=== PATIENT | male | born 1930 | race African-American/Black ===

== ENCOUNTER 2016-05-31 00:43 | Emergency (ER) | payer MEDICARE, MEDICAID ==
[~2016-05-31] VITALS: Ht 185.4 cm; Wt 104.3 kg
[~2016-05-31 00:43] MED LIST: ACETAMINOPHEN80 MG ORAL; ALPHAGAN P5 M2 OP; ALPHAGAN1 DROP BOTH EYES; APRESOLINE100 MG ORAL; APRESOLINE50 MG ORAL; ASPIRIN81 MG NG; ASPIRIN81 MG ORAL; ATORVASTATIN CA20 MG ORAL; AZOPT10 ML BOTH EYES; BRIMONIDINE TART5 ML BOTH EYES; BYSTOLIC 2.5MG2.5 MG ORAL; BYSTOLIC10 MG ORAL; BYSTOLIC20 MG ORAL; CLONIDINE0.1 MG PO; EXFORGE 10-3201 EACH ORAL; EXFORGE 5-1601 EACH ORAL; FUROSEMIDE40 MG ORAL; FUROSEMIDE40 MG/5 ML ORAL; IMDUR30 MG ORAL; ISOSORBIDE DINIT5 MG ORAL; LATANOPROST2.5 ML BOTH EYES; LEVETIRACETAM500 M1 ORAL; LIPITOR20 MG ORAL; LIPITOR80 MG ORAL; LORAZEPAM2 MG/1 M4 ORAL; LOSARTAN POTAS100 MG ORAL; NKM; NORVASC5 MG ORAL; NOVOLIN 70/305 UNIT1 SUBQ; NOVOLOG100 UNITS1 SUBQ; PANTOPRAZOLE SO40 MG IVP; PLAVIX75 MG ORAL; POTASSIUM CHLO20 ME2 ORAL; VANCOMYCIN HCL125 MG IVP; VASOTEC10 MG ORAL; VASOTEC20 MG ORAL; VITAMIN D1000 UNI1 ORAL; XALATAN2.5 ML BOTH EYES
[2016-05-31] MEDS ORDERED: CYMBALTA60 MG ORAL (00:56)
[2016-05-31 01:00] VITALS: BP 64/28
[2016-05-31] MEDS ORDERED: NS 1000ml 3,100 ML IVLG ONE (01:15)
[2016-05-31 01:24] VITALS: BP 64/28
[2016-05-31 01:24] LABS: MEAN CORPUSCULAR HEMOGLOBIN 31.5 PG (27.0-31.0); MEAN CORPUSCULAR HGB CONC 29.8 G/DL (32.0-36.0); MEAN CORPUSCULAR VOLUME 106 FL (80-99); PLATELET COUNT 238 K/UL (150-450); RED BLOOD COUNT 3.16 M/UL (4.70-6.10); RED CELL DISTRIBUTION WIDTH 17.2 % (11.6-14.8); WHITE BLOOD COUNT 19.6 K/UL (4.8-10.8)
[2016-05-31 01:33] LABS: INR 1.5 (0.9-1.1); PROTHROMBIN TIME 15.9 SEC (9.30-11.50)
[2016-05-31 01:37] LABS: TROPONIN I < 0.30 ng/mL (<=0.30)
[2016-05-31 01:41] LABS: ALANINE AMINOTRANSFERASE 21 U/L (3-41); ALBUMIN/GLOBULIN RATIO 0.4 (1.0-2.7); ASPARTATE AMINO TRANSFERASE 47 U/L (5-40); CHLORIDE 138 mEQ/L (98-107); HEMOLYSIS 20; TOTAL PROTEIN 6.6 g/dL (6.6-8.7)
[2016-05-31] MEDS ORDERED: Piperacillin/Tazobactam 4.5 GM in NS 110 ML IVPB ONE (01:45)
[2016-05-31 01:47] LABS: CARBON DIOXIDE 9 mEQ/L (20-30); REFLEX LACTIC ACID YES OR NO YES
[2016-05-31] MEDS ORDERED: Zosyn 4.5gm inj ONE (01:49)
[2016-05-31 01:50] LABS: ANION GAP 33 (5-15); SODIUM 180 mEQ/L (135-145)
[2016-05-31 01:51] LABS: CKMB 4.5 ng/mL (< 6.7)
[2016-05-31 02:30] VITALS: BP 35/18
--- NOTE | 2016-05-31 02:30 | Emergency Room Report ---
History of Present Illness General Chief Complaint: Altered Level of Consciousness Source: Medical Record, EMS Present Illness HPI This is an 85-year-old male who is a [facility] resident. 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 He had a recent history of intracranial bleed. He was sent in for altered mental status with low blood pressure. Unable to get any history from the patient. History is through EMS and chart. Allergies: Coded Allergies: No Known Allergies (Unverified , 05/31/16) Patient History Past Medical History: see triage record, old chart reviewed, CVA/TIA Past Surgical History: other Pertinent Family History: none Social History: Denies: smoking Immunizations: other Reviewed Nursing Documentation: PMH: Agreed, PSxH: Agreed Nursing Documentation-PMH Past Medical History: No History, Except For Hx Cardiac Problems: Yes - afib Hx Hypertension: Yes Hx COPD: Yes Hx Diabetes: Yes Hx Cancer: No Hx Gastrointestinal Problems: No Hx Neurological Problems: Yes Hx Cerebrovascular Accident: Yes Hx Transient Ischemic Attacks: Yes Hx Seizures: Yes - epilepsy Review of Systems Constitutional: Reports: weakness Respiratory: Reports: shortness of breath All Other Systems: limited - Secondary to condition Physical Exam Vital Signs Date Time Temp Pulse Resp B/P Pulse Ox O2 Delivery O2 Flow Rate FiO2 05/31/16 00:40 97.2 85 32 109/87 85 Non-Rebreather 15.0 vitals with hypoxia and hypotension ( repeat blood pressure was very low) Sp02 EP Interpretation: abnormal General Appearance: severe distress, Stupor Head: normocephalic Eyes: bilateral eye other - No trauma ENT: dry mucus membranes Neck: full range of motion, supple, no meningismus Respiratory: respiratory distress, decreased breath sounds, crackles Cardiovascular #1: other - thready pulse Gastrointestinal: normal bowel sounds, non tender, no mass, no organomegaly, no bruit, non-distended Genitourinary: other - [place] Musculoskeletal: other - no edema Neurologic: other - comatose Psychiatric: mood/affect normal Skin: warm/dry Medical Decision Making Diagnostic Impression: Primary Impression: Septic shock Additional Impressions: Pneumonia Qualified Codes: J18.9 - Pneumonia, unspecified organism Severe dehydration Aspiration pneumonia Qualified Codes: J69.0 - Pneumonitis due to inhalation of food and vomit Acute kidney failure Qualified Codes: N17.9 - Acute kidney failure, unspecified Anemia in chronic kidney disease Encephalopathy acute ER Course Patient presents in septic shock. He severely dehydrated. He does not have a G -tube. IV fluids and antibiotic started. His prognosis is extremely poor. Patient be admitted to the hospital for comfort care, IV fluid, and antibiotics. Lab Results Impression labs with multiple abnormalities. EKG Diagnostic Results Rate: normal Rhythm: NSR ST Segments: no acute changes Rhythm Strip Diag. Results EP Interpretation: yes Rate: 50 Rhythm: NSR, no PVC's, no ectopy Chest X-Ray Diagnostic Results EP Interpretation: Yes Findings: no effusion, no pneumothorax, other - Right lower lobe infiltrate Number of Views: 1 Last Vital Signs Date Time Temp Pulse Resp B/P Pulse Ox O2 Delivery O2 Flow Rate FiO2 05/31/16 01:24 97.2 41 14 64/28 93 Non-Rebreather 15.0 Status: improved Disposition: ADMITTED INPATIENT Condition: Critical Referrals: MATT LIMA (PCP) ELGIN CONCEPCION M.D. May 31, 2016 02:30
[2016-05-31 03:08] VITALS: BP 0/0
[2016-05-31 03:18] VITALS: BP 0/0
[2016-05-31 03:45] VITALS: BP 0/0
--- NOTE | 2016-05-31 10:13 | Diagnostic Imaging Report ---
Indication: Chest Pain Comparison: 03/05/16 A single view chest radiograph was obtained. Findings: Hazy opacities are present within the lungs at the lung bases. The heart is borderline in size. Pulmonary vascularity is within normal limits. Bones are osteopenic. Impression: Mild asymmetric basilar edema versus infiltrate. Please correlate clinically.
[2016-05-31 10:32] LABS: BAND NEUTROPHILS % (MANUAL) 7 % (0-8); BASOPHILS % (MANUAL) 0 % (0-2); EOSINOPHILS % (MANUAL) 0 % (0-3); LYMPHOCYTES % (MANUAL) 7 % (20-45); NEUTROPHILS % (MANUAL) 84 % (45-75); NUCLEATED RED BLOOD CELLS 8 /100 WBC; PLATELET ESTIMATE ADEQUATE; PLATELET MORPHOLOGY NORMAL; TOTAL CELLS COUNTED 100
[2016-05-31 10:33] LABS: ANISOCYTOSIS 1+; HYPOCHROMASIA 1+
--- NOTE | 2016-06-01 15:13 | Cardiology Report ---
APPROVED REPORT EKG Measurement Heart [id number] Unusual P axis, possible ectopic atrial bradycardia with occasional premature ventricular complexes Right bundle branch block Abnormal ECG
== END 2016-05-31 03:45 | disposition expired ==
LOC: EDBD 00:43 → EMR 01:12 → EDBD 01:12 → EDBEDREQ 02:10 → EMR 03:45
DX: A41.9 Sepsis, unspecified organism (principal); R65.21 Severe sepsis with septic shock; J18.9 Pneumonia, unspecified organism; J69.0 Pneumonitis due to inhalation of food and vomit; E86.0 Dehydration; E11.22 Type 2 diabetes mellitus with diabetic chronic kidney disease; I12.9 Hypertensive chronic kidney disease with stage 1 through stage 4 chronic kidney disease, or unspecified chronic kidney disease; N18.9 Chronic kidney disease, unspecified; N17.9 Acute kidney failure, unspecified; D63.1 Anemia in chronic kidney disease; G93.40 Encephalopathy, unspecified; I48.91 Unspecified atrial fibrillation; J44.9 Chronic obstructive pulmonary disease, unspecified; G40.909 Epilepsy, unspecified, not intractable, without status epilepticus; Z86.73 Personal history of transient ischemic attack (TIA), and cerebral infarction without residual deficits; Z66 Do not resuscitate
CPT/HCPCS: 36415; 71010; 80053; 82550; 82553; 83605; 84484; 85007; 85025; 85610; 85730; 87040; 93005; 99284; J1956; J2543